=== PATIENT | male | born 1980 | race Caucasian/White ===

== ENCOUNTER 2018-12-09 04:58 | Emergency (ER) | payer BC ==
[2018-12-09] MEDS ORDERED: ZESTRIL20 M1 PO (05:11)
[2018-12-09 06:05] LABS: HEMATOCRIT 42.5 % (42.0-52.0); HEMOGLOBIN 15.2 g/dL (13.5-18.0); MEAN CELL VOLUME 85 fl (78-100); MEAN CORPUSCULAR HEMOGLOBIN 30 pg (27-31); MEAN CORPUSCULAR HGB CONC 36 g/dL (33-37); MEAN PLATELET VOLUME 10.4 fl (7.4-10.4); PLATELET COUNT 184 K/mm3 (130-400); RED CELL DISTRIBUTION WIDTH 12.4 % (11.5-14.5); WHITE BLOOD COUNT 7.6 K/mm3 (4.8-10.8)
[2018-12-09 06:17] LABS: ALBUMIN 4.3 g/dL (3.5-5.0); POTASSIUM 3.9 mmol/L (3.5-5.1)
[2018-12-09 06:19] LABS: CALCIUM 9.2 mg/dL (8.3-10.5)
[2018-12-09 06:20] LABS: TOTAL PROTEIN 7.3 g/dL (6.4-8.3)
[2018-12-09 06:21] LABS: URINE APPEARANCE CLEAR; URINE BILIRUBIN NEGATIVE (NEGATIVE); URINE BLOOD NEGATIVE (NEGATIVE); URINE COLOR YELLOW; URINE GLUCOSE NEGATIVE (NEGATIVE); URINE KETONE NEGATIVE (NEGATIVE); URINE LEUKOCYTE ESTERASE NEGATIVE (NEGATIVE); URINE NITRATE NEGATIVE (NEGATIVE); URINE PROTEIN(semi-quant) NEGATIVE (NEGATIVE); URINE UROBILINOGEN NORMAL (NORMAL); URINE WBC 0-1 /hpf (0-3)
[2018-12-09 06:22] LABS: TOTAL BILIRUBIN 0.4 mg/dL (0.2-1.2)
[2018-12-09 06:36] LABS: LYMPHOCYTE 17 % (20-51); MONOCYTE 14 % (3-10); NEUTROPHILS 68 % (42-75)
[2018-12-09 09:10] VITALS: BP 140/70
== END 2018-12-09 09:21 | disposition home or self-care (01) ==
LOC: ED 04:58
PROVIDERS: Family Medicine
DX: I10 Essential (primary) hypertension (principal); R10.9 Unspecified abdominal pain
CPT/HCPCS: J3010; Q9967

== ENCOUNTER → 2022-06-04 | Outpatient (CLI) | payer BC ==
[~2022-06-04] MED LIST: HYDROCHLOROTHIA1 T15 PO; METOPROLOL SUC100 M1 PO; ZESTRIL20 M1 PO
== END ==
LOC: RAD 10:26
DX: R51.9 Headache, unspecified (principal)